=== PATIENT | male | born 1965 | race African-American/Black ===

== ENCOUNTER 2020-07-30 12:46 | Inpatient (IN) | payer OTHER ==
[2020-07-30 13:47] VITALS: BMI 34.8
[2020-07-30] MEDS ORDERED: NICOTINE POLACRILEX 4 MG GUM BUC PRN (14:52)
[2020-07-30] MEDS ORDERED: MENTHOL/PHENOL 1 EACH UD MM PRN (14:52)
[2020-07-30] MEDS ORDERED: diazePAM 5 MG TABLET PO PRN (14:52)
[2020-07-30] MEDS ORDERED: METHOCARBAMOL 500 MG TABLET PO PRN (14:52)
[2020-07-30] MEDS ORDERED: ONDANSETRON *ODT* 4 MG TABLET SL PRN (14:52)
[2020-07-30] MEDS ORDERED: MAGNESIUM CITRATE 300 ML BOTTLE PO PRN (14:52)
[2020-07-30] MEDS ORDERED: MAG HYDROX/AL HYDROX/SIMETH 30 ML UNIT-DOSE CUP PO PRN (14:52)
[2020-07-30] MEDS ORDERED: hydrOXYzine PAMOATE 25 MG CAPSULE (FP) PO PRN (14:52)
[2020-07-30] MEDS ORDERED: MAGNESIUM HYDROX 2400MG/30ML ORAL SUSPENSION 30 ML CUP PO PRN (14:52)
[2020-07-30] MEDS ORDERED: BISMUTH SUBSALICYLATE 262 MG/15 ML BTL PO PRN (14:52)
[2020-07-30] MEDS ORDERED: ACETAMINOPHEN 325 MG TABLET (FP) PO PRN ×2 (14:52)
[2020-07-30] MEDS ORDERED: IBUPROFEN 400 MG TABLET (FP) PO PRN (14:52)
[2020-07-30] MEDS ORDERED: COLLOIDAL OATMEAL 1 BAR EACH TP PRN (14:58)
[2020-07-30] MEDS ORDERED: ALBUTEROL SO4 HFA INHALER IH PRN (14:58)
[2020-07-30] MEDS: diazePAM 5 MG TABLET PO SCH ×2 (17:35→22:30)
[2020-07-30 18:07] LABS: HEMATOCRIT 38.9 % (35.4-49); MCHC 33.5 g/dl (32.0-35.9); MEAN CELL VOLUME 83.5 fl (80-96); MEAN PLT VOLUME 7.9 fl (7.5-11.1); PLATELET COUNT 277 K/MM3 (134-434); RBC 4.66 M/mm3 (4.00-5.60); RDW 15.9 % (11.9-15.9); WHITE BLOOD COUNT 7.4 K/mm3 (4.0-10.0)
[2020-07-30 18:12] LABS: CALCIUM 9.3 mg/dL (8.5-10.1)
[2020-07-30 18:13] LABS: ALBUMIN 3.7 g/dl (3.4-5.0); BLOOD UREA NITROGEN 16.1 mg/dL (7-18)
[2020-07-30 18:16] LABS: CREATININE 1.3 mg/dL (0.55-1.3)
[2020-07-30 18:17] LABS: BILIRUBIN,TOTAL 0.5 mg/dL (0.2-1)
[2020-07-30] MEDS: MELATONIN 5 MG TABLETS PO SCH (22:30)
[2020-07-30] MEDS: THIAMINE HCL 100 MG TABLET (FP) PO SCH (22:30)
[2020-07-30] MEDS: CLOTRIMAZOLE 1% CREAM 15 GM TUBE TP SCH (23:05)
[2020-07-31] MEDS: diazePAM 5 MG TABLET PO SCH ×4 (06:05→22:11)
[2020-07-31] MEDS: PRENATAL VITAMINS W/ FOLIC ACID TABLET (FP) PO SCH (10:13)
[2020-07-31] MEDS: CLOTRIMAZOLE 1% CREAM 15 GM TUBE TP SCH ×2 (10:14→22:12)
[2020-07-31] MEDS ORDERED: MASKS NR ONE (16:52)
[2020-07-31] MEDS: THIAMINE HCL 100 MG TABLET (FP) PO SCH (22:11)
[2020-07-31] MEDS: MIRTAZAPINE 15 MG TABLET (FP) PO SCH (22:12)
[2020-07-31] MEDS: busPIRone HCL 10 MG TABLET (FP) PO SCH (22:12)
[2020-07-31] MEDS: MELATONIN 5 MG TABLETS PO SCH (22:12)
[2020-08-01] MEDS: diazePAM 5 MG TABLET PO SCH ×3 (05:20→23:39)
[2020-08-01] MEDS: CLOTRIMAZOLE 1% CREAM 15 GM TUBE TP SCH ×2 (10:32→22:12)
[2020-08-01] MEDS: busPIRone HCL 10 MG TABLET (FP) PO SCH ×2 (10:33→22:13)
[2020-08-01] MEDS: PRENATAL VITAMINS W/ FOLIC ACID TABLET (FP) PO SCH (10:34)
[2020-08-01] MEDS: MIRTAZAPINE 15 MG TABLET (FP) PO SCH (22:10)
[2020-08-01] MEDS: MELATONIN 5 MG TABLETS PO SCH (22:10)
[2020-08-01] MEDS: THIAMINE HCL 100 MG TABLET (FP) PO SCH (22:11)
[2020-08-02] MEDS: diazePAM 5 MG TABLET PO SCH ×2 (06:25→20:25)
[2020-08-02] MEDS: busPIRone HCL 10 MG TABLET (FP) PO SCH ×2 (10:13→22:17)
[2020-08-02] MEDS: CLOTRIMAZOLE 1% CREAM 15 GM TUBE TP SCH ×2 (10:13→22:19)
[2020-08-02] MEDS: PRENATAL VITAMINS W/ FOLIC ACID TABLET (FP) PO SCH (10:14)
[2020-08-02] MEDS: MINERAL OIL/PETROLAT/WATER TOPICAL CREAM 113 GM JAR TP SCH ×3 (13:31→22:19)
[2020-08-02] MEDS: THIAMINE HCL 100 MG TABLET (FP) PO SCH (22:17)
[2020-08-02] MEDS: MELATONIN 5 MG TABLETS PO SCH (22:17)
[2020-08-02] MEDS: MIRTAZAPINE 15 MG TABLET (FP) PO SCH (22:17)
[2020-08-03] MEDS ORDERED: diazePAM 5 MG TABLET PO ONE (06:00)
[2020-08-03 09:44] VITALS: BP 133/80; PULSE 58; TEMP 96.6
== END 2020-08-03 09:20 | disposition home or self-care (01) | DRG 774 ==
LOC: YASAS 12:46 → Y6N 15:08
PROVIDERS: ADMIT Allergy & Immunology; ATTEND Allergy & Immunology
PROC: HZ2ZZZZ Detoxification Services for Substance Abuse Treatment (ICD-10-PCS; principal; 2020-07-30)
DX: F10.230 Alcohol dependence with withdrawal, uncomplicated (principal); F14.20 Cocaine dependence, uncomplicated; F12.20 Cannabis dependence, uncomplicated; F17.210 Nicotine dependence, cigarettes, uncomplicated; F19.24 Other psychoactive substance dependence with psychoactive substance-induced mood disorder; F31.9 Bipolar disorder, unspecified; G47.00 Insomnia, unspecified; J45.909 Unspecified asthma, uncomplicated; L85.3 Xerosis cutis; Z91.14 Patient's other noncompliance with medication regimen; Z91.19 Patient's noncompliance with other medical treatment and regimen
CPT/HCPCS: 36415; 71046-TC-FY; 80053; 85027; 86780; 93005; 93010; C9803; U0003; U0005